=== PATIENT | male | born 1955 ===

== ENCOUNTER → 2018-10-06 | Outpatient (CLI) | payer BC | END | disposition home or self-care (01) | LOC: LAB EV 15:55 → LAB SHORT 15:55 | DX: R31.21 Asymptomatic microscopic hematuria (principal) | CPT/HCPCS: 87077; 87086; 87147; 87186 ==

== ENCOUNTER → 2018-12-07 | Outpatient (CLI) | payer BC | END | disposition home or self-care (01) | LOC: LAB SHORT 16:30 → LAB EV 16:30 | DX: N41.1 Chronic prostatitis (principal) | CPT/HCPCS: 87086 ==